=== PATIENT | female | born 1940 | race Caucasian/White ===

== ENCOUNTER → 2016-03-30 | Outpatient (CLI) | payer MEDICARE, OTHER ==
[~2016-03-30] MED LIST: AMITRIPTYLINE H25 M1 PO; ASPIRIN E.C. 8181 MG PO; ATIVAN 1MG T1 MG/TAB PO; CARAFATE 1GM1 G PO; CEFTIN 250250 MG/TAB PO; CITRACAL + D 251 TAB PO; CITRACAL + D CA1 TAB PO; ESTROGENS0.3 MG PO; FISH OIL 1000MG1 CAP PO; IMDUR 30MG30 MG/TAB; IMDUR 30MG30 MG/TAB PO; IRON325 M2 PO; KENALOG0.1% TP; LEVSIN 0.10.125 MG/T PO; LIPITOR 80MG80 MG PO; LYSINE 500500 MG/TAB PO; MACROBID 1100 MG/CAP; MAG-OX 400400 MG/TAB PO; MOTRIN 800800 MG/TAB PO; MOTRIN800 MG PO; NITROSTAT0.4 MG/TAB SL; OSTEO-BI-FLEX 21 TAB; OSTEO-BI-FLEX 21 TAB PO; PEPCID40 MG PO; PLAVIX 75MG TAB75 MG PO; PREMARIN .3MG0.3 MG PO; PREVACID 30MG30 M1 PO; PRILOSEC20 MG PO; PRINIVIL5 MG PO; PROTONIX 40MG T40 MG PO; SINGULAIR 110 MG/TAB PO; TOPROL XL 25MG25 MG PO; TYLENOL 325MG325 MG PO; ULTRAM 50MG TAB50 MG; VALIUM 2MG T2 MG/TAB PO; VITAMIN D 50,1.25 MG PO; VITAMIN D31000 IU PO; VITAMIN E 400 U4001 PO; VITAMIN E28000 IU TP; VITAMINE200 PO; ZANTAC 300300 MG PO; ZESTRIL2.5 MG PO; ZOCOR 40MG40 MG PO; ZOCOR20 MG PO; ZYRTEC10 MG PO; ZYRTEC5 MG PO; [UNRECOGNIZED DRUG - OTHER]; [UNRECOGNIZED DRUG - OTHER] PO
== END ==
LOC: MC.RAD 10:53
DX: Z12.31 Encounter for screening mammogram for malignant neoplasm of breast (principal)

== ENCOUNTER → 2016-12-08 | Outpatient (CLI) | payer MEDICARE, OTHER | LOC: COL.RAD 08:30 | DX: K22.8 Other specified diseases of esophagus (principal); K44.9 Diaphragmatic hernia without obstruction or gangrene; R19.7 Diarrhea, unspecified; Z86.010 Personal history of colon polyps; R10.9 Unspecified abdominal pain; K57.92 Diverticulitis of intestine, part unspecified, without perforation or abscess without bleeding; R10.13 Epigastric pain; K21.9 Gastro-esophageal reflux disease without esophagitis ==

== ENCOUNTER 2017-08-19 10:34 | Emergency (ER) | payer MEDICARE, OTHER ==
[~2017-08-19] VITALS: Ht 152.4 cm; Wt 49.1 kg
[2017-08-19 10:35] VITALS: TEMP 97.7
[2017-08-19 10:56] LABS: BASO % 0.3 % (0.0-2.0); EOS % 0.3 % (0-4.0); GRAN # 9.3 (1.4-6.5); GRAN % 80.1 % (42.2-75.2); HEMOGLOBIN 10.8 g/dl (12.5-16.0); LYMPH # 1.3 (1.2-3.4); LYMPH % 11.4 % (20.0-51.0); MEAN CELL VOLUME 97 fl (80.0-100.0); MEAN CORPUSCULAR HEMOGLOBIN 33 pg (27.0-31.0); MEAN CORPUSCULAR HGB CONC 34 g/dl (33.0-37.0); MEAN PLATELET VOLUME 9.2 fl (7.4-10.4); MONO # 0.8 (0.1-0.6); MONO % 7.2 % (1.7-9.3); PLATELET COUNT 223 K/mm3 (130-400); RED BLOOD COUNT 3.27 M/mm3 (4.10-5.30); REDCELL DISTRIBUTION WIDTH-CV 12.8 % (11.5-14.5)
[2017-08-19 11:02] LABS: HEMATOCRIT 31.6 % (37.0-47.0)
[2017-08-19 11:07] LABS: ALBUMIN 2.9 gm/dL (3.5-5.0); BILIRUBIN,TOTAL 0.2 mg/dL (0.0-1.0); CALCIUM 8.4 mg/dL (8.4-10.2); CREATININE, serum 0.68 mg/dL (0.52-1.25); POTASSIUM 3.8 mmol/L (3.4-5.0); TOTAL PROTEIN 5.4 gm/dL (6.4-8.2)
[2017-08-19 11:11] LABS: PARTIAL THROMBOPLASTIN TIME 32.3 SECONDS (26.0-37.0)
[2017-08-19 11:21] LABS: TROPONIN-I 0.065 ng/mL (0.000-0.034)
[2017-08-19 11:38] LABS: TSH w REFLEX 1.11 uIU/mL (0.465-4.680)
[2017-08-19] MEDS ORDERED: ASPIRIN 81M81 MG/TA2 PO (13:21)
[2017-08-19] MEDS ORDERED: MYRBETR25MG PO (13:27)
[2017-08-19] MEDS ORDERED: NEXIUM 40MG40 MG PO (13:31)
[2017-08-19] MEDS ORDERED: QUESTRAN4 GM/9 GM PO (13:39)
[2017-08-19] MEDS ORDERED: NORCO 325 MG-51 TAB PO (13:40)
[2017-08-19] MEDS ORDERED: MAG64 110 MG-181 ECT (13:40)
[2017-08-19 14:13] VITALS: BP 114/49; PULSE 67
== END 2017-08-19 12:50 | disposition short-term general hospital (02) ==
LOC: COL.ER 10:34
PROVIDERS: Emergency Medicine
DX: I48.91 Unspecified atrial fibrillation (principal); I25.10 Atherosclerotic heart disease of native coronary artery without angina pectoris; Z79.82 Long term (current) use of aspirin; Z79.02 Long term (current) use of antithrombotics/antiplatelets; Z95.5 Presence of coronary angioplasty implant and graft
CPT/HCPCS: J0282; J1650; J7030; J7050; J7060

== ENCOUNTER 2017-08-31 09:52 | Inpatient (IN) | payer MEDICARE, OTHER ==
[~2017-08-31] VITALS: Ht 152.4 cm; Wt 48.2 kg
[~2017-08-31 09:52] MED LIST changes: +ASPIRIN 81M81 MG/TA2 PO; +MAG64 110 MG-181 ECT PO; +MYRBETR25MG PO; +NEXIUM 40MG40 MG PO; +NORCO 325 MG-51 TAB PO; +QUESTRAN4 GM/9 GM PO
[2017-08-31 10:30] LABS: BASO % 0.7 % (0.0-2.0); EOS % 0.5 % (0-4.0); GRAN # 3.1 (1.4-6.5); GRAN % 55.8 % (42.2-75.2); HEMOGLOBIN 11.6 g/dl (12.5-16.0); LYMPH # 1.8 (1.2-3.4); LYMPH % 33.4 % (20.0-51.0); MEAN CELL VOLUME 93 fl (80.0-100.0); MEAN CORPUSCULAR HEMOGLOBIN 33 pg (27.0-31.0); MEAN CORPUSCULAR HGB CONC 36 g/dl (33.0-37.0); MEAN PLATELET VOLUME 8.7 fl (7.4-10.4); MONO # 0.5 (0.1-0.6); MONO % 9.1 % (1.7-9.3); PLATELET COUNT 343 K/mm3 (130-400); RED BLOOD COUNT 3.51 M/mm3 (4.10-5.30); REDCELL DISTRIBUTION WIDTH-CV 12.5 % (11.5-14.5)
[2017-08-31 10:33] LABS: HEMATOCRIT 32.5 % (37.0-47.0)
[2017-08-31 10:41] LABS: ALBUMIN 3.8 gm/dL (3.5-5.0); BILIRUBIN,TOTAL 1.1 mg/dL (0.0-1.0); CALCIUM 9.4 mg/dL (8.4-10.2); CREATININE, serum 0.64 mg/dL (0.52-1.25); TOTAL PROTEIN 6.5 gm/dL (6.4-8.2)
[2017-08-31 11:09] LABS: COLLECTION METHOD CLEAN CATCH
[2017-08-31 11:31] LABS: MUCOUS Present /lpf; PH 7 (5-8); URINE APPEARANCE Cloudy; URINE BACTERIA Occasional /hpf; URINE BILIRUBIN Negative (NEGATIVE); URINE BLOOD Negative (NEGATIVE); URINE COLOR Yellow; URINE GLUCOSE Negative (NEGATIVE); URINE KETONE Trace (NEGATIVE); URINE LEUKOCYTE ESTERASE 3+ (NEGATIVE); URINE NITRATE Positive (NEGATIVE); URINE PROTEIN(semi-quant) Negative (NEGATIVE); URINE UROBILINOGEN Negative (NEGATIVE)
[2017-08-31] MEDS ORDERED: PACERONE200 MG PO (11:49)
[2017-08-31] MEDS ORDERED: ELIQUIS 5MG PO (11:50)
[2017-08-31] MEDS ORDERED: NEXIUM 20MG20 MG PO (11:52)
[2017-08-31] MEDS ORDERED: ANTI-DIARRHEAL2 MG PO (11:54)
[2017-08-31] MEDS ORDERED: SLOW-MAG 6464 MG/TAB PO (11:56)
[2017-08-31] MEDS ORDERED: SINGULAIR 110 MG/TAB PO (11:57)
[2017-08-31] MEDS ORDERED: OSTEO-BI-FLEX 21 TAB PO (11:57)
[2017-08-31] MEDS ORDERED: CARAFATE 1GM1 G PO (11:58)
[2017-08-31] MEDS ORDERED: K-TAB10 (11:58)
[2017-08-31] MEDS ORDERED: MASON NATURAL2000 IU PO (11:59)
[2017-08-31] MEDS ORDERED: OMNICEF 300MG300 MG PO (12:43)
[2017-08-31 16:23] LABS: MAGNESIUM 1.4 mg/dL (1.6-2.3)
[2017-08-31 16:36] LABS: TROPONIN-I < 0.012 ng/mL (0.000-0.034)
[2017-08-31 17:05] VITALS: BP 158/40; PULSE 60; TEMP 98
[2017-08-31 17:27] VITALS: BP 101/74; PULSE 59; TEMP 98.2
[2017-08-31 17:29] VITALS: BP 151/53; PULSE 66; TEMP 98.2
[2017-08-31 17:34] VITALS: BP 120/46; PULSE 69; TEMP 98.2
[2017-08-31 18:22] LABS: CALCIUM 8.6 mg/dL (8.4-10.2); CREATININE, serum 0.57 mg/dL (0.52-1.25); POTASSIUM 3.1 mmol/L (3.4-5.0)
[2017-08-31 19:54] VITALS: BP 136/50; PULSE 55; TEMP 98.2
[2017-08-31 23:57] VITALS: BP 147/58; PULSE 54; TEMP 97.7
[2017-09-01 04:24] VITALS: BP 129/50; PULSE 50; TEMP 98.4
[2017-09-01 07:07] LABS: CALCIUM 8.4 mg/dL (8.4-10.2); CREATININE, serum 0.62 mg/dL (0.52-1.25); POTASSIUM 4.1 mmol/L (3.4-5.0)
[2017-09-01 08:27] VITALS: BP 138/48; PULSE 57; TEMP 97.4
[2017-09-01 12:34] VITALS: BP 125/54; PULSE 54; TEMP 98.9
[2017-09-01 15:55] VITALS: BP 142/53; PULSE 54; TEMP 98.2
[2017-09-01 20:36] VITALS: BP 140/48; PULSE 56; TEMP 97.6
[2017-09-01 23:39] VITALS: BP 116/88; PULSE 52; TEMP 98.2
[2017-09-02 03:52] VITALS: BP 168/55; PULSE 74; TEMP 98.6
[2017-09-02 07:06] VITALS: BP 146/51; PULSE 51; TEMP 97.9
[2017-09-02 08:00] LABS: CALCIUM 8.2 mg/dL (8.4-10.2); CREATININE, serum 0.6 mg/dL (0.52-1.25); POTASSIUM 3.7 mmol/L (3.4-5.0)
[2017-09-02 11:08] VITALS: BP 136/67; PULSE 53; TEMP 97.7
[2017-09-02] MEDS ORDERED: BETAPACE 80MG80 MG PO (11:36)
[2017-09-02] MEDS ORDERED: OMNICEF 300MG300 MG PO (11:37)
== END 2017-09-02 17:00 | disposition home or self-care (01) | DRG 690 ==
LOC: COL.ER 09:52 → MEDICAL 14:41
PROVIDERS: Emergency Medicine; Nurse Practitioner; Physician Assistant
DX: N39.0 Urinary tract infection, site not specified (principal); E87.1 Hypo-osmolality and hyponatremia; R42 Dizziness and giddiness; T46.2X5A Adverse effect of other antidysrhythmic drugs, initial encounter; I48.0 Paroxysmal atrial fibrillation; B96.20 Unspecified Escherichia coli [E. coli] as the cause of diseases classified elsewhere; I10 Essential (primary) hypertension; I25.10 Atherosclerotic heart disease of native coronary artery without angina pectoris; I08.0 Rheumatic disorders of both mitral and aortic valves; E87.6 Hypokalemia; Z87.891 Personal history of nicotine dependence; Z95.5 Presence of coronary angioplasty implant and graft
CPT/HCPCS: G0378; J0696; J3475; J7030

== ENCOUNTER → 2017-12-01 | Outpatient (CLI) | payer MEDICARE, OTHER ==
[~2017-12-01] MED LIST changes: +ANTI-DIARRHEAL2 MG PO; +BETAPACE 80MG80 MG PO; +CLEOCIN HCL300 MG PO; +ELIQUIS 5MG PO; +K-TAB10; +MAG-TAB SR84 MG PO; +MASON NATURAL2000 IU PO; +NEXIUM 20MG20 MG PO; +OMNICEF 300MG300 MG PO; +PACERONE200 MG PO; +SLOW-MAG 6464 MG/TAB PO
== END ==
LOC: MC.RAD 10:26
DX: Z12.31 Encounter for screening mammogram for malignant neoplasm of breast (principal)

== ENCOUNTER 2017-12-06 09:58 | Day surgery (SDC) | payer MEDICARE, OTHER ==
[~2017-12-06] VITALS: Ht 152.5 cm; Wt 50.4 kg
[~2017-12-06 09:58] MED LIST changes: -CLEOCIN HCL300 MG PO
[2017-12-06 10:56] VITALS: BP 158/46; PULSE 59; TEMP 97.7
[2017-12-06] MEDS ORDERED: CLEOCIN HCL300 MG PO (11:18)
[2017-12-06 12:07] VITALS: BP 148/86; PULSE 56; TEMP 97.6
== END 2017-12-06 12:15 | disposition home or self-care (01) ==
LOC: COL.CAR 09:58
DX: I48.0 Paroxysmal atrial fibrillation (principal); I25.10 Atherosclerotic heart disease of native coronary artery without angina pectoris; I44.7 Left bundle-branch block, unspecified; I08.0 Rheumatic disorders of both mitral and aortic valves; E78.5 Hyperlipidemia, unspecified; R51 Headache; K21.9 Gastro-esophageal reflux disease without esophagitis; M19.90 Unspecified osteoarthritis, unspecified site; M85.80 Other specified disorders of bone density and structure, unspecified site; Z90.49 Acquired absence of other specified parts of digestive tract; Z90.710 Acquired absence of both cervix and uterus; Z90.79 Acquired absence of other genital organ(s); Z90.722 Acquired absence of ovaries, bilateral; Z79.01 Long term (current) use of anticoagulants; Z79.82 Long term (current) use of aspirin; Z88.0 Allergy status to penicillin; Z88.5 Allergy status to narcotic agent; Z88.8 Allergy status to other drugs, medicaments and biological substances; Z95.5 Presence of coronary angioplasty implant and graft; Z87.891 Personal history of nicotine dependence; Z82.49 Family history of ischemic heart disease and other diseases of the circulatory system
CPT/HCPCS: 27124; C1764

== ENCOUNTER 2018-02-21 01:46 | Inpatient (IN) | payer MEDICARE, OTHER ==
[2018-02-21] VITALS (14 sets, daily range): BP systolic 114–1142; BP diastolic 44–88; PULSE 64–96; TEMP 97.5–98.6
[~2018-02-21] VITALS: Ht 152.4 cm; Wt 46.8 kg
[~2018-02-21 01:46] MED LIST changes: +CLEOCIN HCL300 MG PO
[2018-02-21 02:03] LABS: BASO % 0.2 % (0.0-2.0); EOS % 0.1 % (0-4.0); GRAN # 13.5 (1.4-6.5); HEMOGLOBIN 12.3 g/dl (12.5-16.0); LYMPH # 1.9 (1.2-3.4); LYMPH % 11.7 % (20.0-51.0); MEAN CELL VOLUME 91 fl (80.0-100.0); MEAN CORPUSCULAR HEMOGLOBIN 32 pg (27.0-31.0); MEAN CORPUSCULAR HGB CONC 35 g/dl (33.0-37.0); MEAN PLATELET VOLUME 9.4 fl (7.4-10.4); MONO # 0.7 (0.1-0.6); MONO % 4.4 % (1.7-9.3); PLATELET COUNT 313 K/mm3 (130-400); RED BLOOD COUNT 3.84 M/mm3 (4.10-5.30)
[2018-02-21 02:05] LABS: HEMATOCRIT 34.9 % (37.0-47.0)
[2018-02-21 02:11] LABS: INR 1.2 (0.8-3.0); PROTHROMBIN TIME 13.9 SECONDS (9.7-12.8)
[2018-02-21 02:14] LABS: PARTIAL THROMBOPLASTIN TIME 32.4 SECONDS (26.0-37.0)
[2018-02-21 02:34] LABS: ALANINE AMINOTRANSFERASE 15 U/L (9-52); ALBUMIN 4.1 gm/dL (3.5-5.0); ALKALINE PHOSPHATASE 76 U/L (50-136); ANION GAP 10 mmol/L (7-16); AST,SGOT 22 U/L (15-37); BILIRUBIN,TOTAL 0.6 mg/dL (0.0-1.0); BLOOD UREA NITROGEN 27 mg/dL (7-17); C-REACTIVE PROTEIN < 0.5 mg/dL (0.0-0.9); CALCIUM 9.5 mg/dL (8.4-10.2); CARBON DIOXIDE 21 mmol/L (22-30); CHLORIDE 98 mmol/L (98-107); CREATININE, serum 0.55 mg/dL (0.52-1.25); GLUCOSE 183 mg/dL (74-106); LIPASE 71 U/L (23-300); POTASSIUM 3.9 mmol/L (3.4-5.0); SODIUM 129 mmol/L (137-145); TOTAL PROTEIN 7.1 gm/dL (6.4-8.2)
[2018-02-21 02:40] LABS: COLLECTION METHOD CLEAN CATCH
[2018-02-21 02:50] LABS: TROPONIN-I < 0.012 ng/mL (0.000-0.034)
[2018-02-21 03:26] LABS: BUDDING YEAST Present /hpf; MUCOUS Present /lpf; PH 6 (5-8); SQUAMOUS EPITHELIAL None Seen /hpf; URINE APPEARANCE Hazy; URINE BACTERIA Rare /hpf; URINE BILIRUBIN Negative (NEGATIVE); URINE BLOOD Negative (NEGATIVE); URINE COLOR Yellow; URINE GLUCOSE 1+ (NEGATIVE); URINE KETONE 1+ (NEGATIVE); URINE LEUKOCYTE ESTERASE 1+ (NEGATIVE); URINE NITRATE Positive (NEGATIVE); URINE PROTEIN(semi-quant) Negative (NEGATIVE); URINE UROBILINOGEN Negative (NEGATIVE)
[2018-02-21] MEDS ORDERED: MAG-OX 400400 MG/TAB PO (03:42)
[2018-02-21] MEDS ORDERED: OSTEO-BI-FLEX 21 TAB PO (03:42)
[2018-02-21] MEDS ORDERED: BETAPACE 80MG80 MG PO (03:44)
[2018-02-21] MEDS ORDERED: FERROUSAL325 MG PO (03:46)
--- NOTE | 2018-02-21 08:30 | NUR ---
Patient alert and oriented, answers questions appropriately. Abdomen firm, distended. Bowel sounds tinkling. No flatus. C/o nausea. Abdomen pain 8/10 with movement. No other c/o at this time.
[2018-02-21 08:47] LABS: BASO % 0.2 % (0.0-2.0); GRAN # 15.7 (1.4-6.5); HEMOGLOBIN 12.1 g/dl (12.5-16.0); LYMPH # 1.1 (1.2-3.4); LYMPH % 6.1 % (20.0-51.0); MEAN CELL VOLUME 92 fl (80.0-100.0); MEAN CORPUSCULAR HEMOGLOBIN 32 pg (27.0-31.0); MEAN CORPUSCULAR HGB CONC 35 g/dl (33.0-37.0); MEAN PLATELET VOLUME 9.7 fl (7.4-10.4); MONO # 1.1 (0.1-0.6); PLATELET COUNT 293 K/mm3 (130-400); RED BLOOD COUNT 3.75 M/mm3 (4.10-5.30)
[2018-02-21 08:51] LABS: HEMATOCRIT 34.3 % (37.0-47.0)
[2018-02-21 08:58] LABS: CALCIUM 8.9 mg/dL (8.4-10.2); CREATININE, serum 0.5 mg/dL (0.52-1.25); POTASSIUM 3.3 mmol/L (3.4-5.0)
--- NOTE | 2018-02-21 16:58 | NUR ---
Patient returns from surgery. Assessment unchanged except for midline incision and lap site with dressing CDI. Bowel sounds absent. No flatus. C/o 5/10 pain to abdomen. No other c/o at this time.
[2018-02-22] VITALS (8 sets, daily range): BP systolic 111–150; BP diastolic 43–64; PULSE 74–104; TEMP 97.4–98.1
--- NOTE | 2018-02-22 02:12 | NUR ---
THE PT WAS JUST SETTLED IN HER ROOM SHORTLY BEFORE SHIFT REPORT WITH ANICETO AND HER ORIENTEE. THE PT BEDRESTS, C\\O A HEADACHE WHICH IS NORMAL FOR HER. IV PATENT TO RIGHT ARM, BHAGAT PATENT. ABD DRESSING WAS CD&I, DR. WALSH WAS IN BEDSIDE REPORT WAS DONE. BANDAID JUST TO THE RIGHT OF THE ABD IS ALSO CD&I. THE PT WAS VERY TALKATIVE.TELE CONTINUES AT WITH BBB. THE PT C\\O RASPINESS AND SORE THROAT. FEW SPARING ICE CHIPS FOR COMFORT. HYPO ACTIVE BOWEL SOUNDS. THE PT VERBALIZED OF MULTIPLE SURGERIES, OR DIVERTICULOSIS AND OF HAVING ISSUES WITH WEIGHT LOSS AND FOOD INTOLERANCES. THE PT WAS REPOSITIONED UP IN THE BED, ABLE TO BELCH SOME, VERBALIZED THAT THIS HELPED WITH HER "GAS".SHE APPEARS TO SLEEP IN NAPS. SHE IS CLOSTROPHOBIC AND WANTED HER FIELD OF VISION TO BE CLEAR AND FOR THE DOOR TO THE ROOM TO REMAIN WIDE OPEN.
--- NOTE | 2018-02-22 03:22 | NUR ---
THE PT IS BEDRESTING WITH EYES CLOSED, RESP EVEN
[2018-02-22 08:51] LABS: HEMOGLOBIN 10.7 g/dl (12.5-16.0); MEAN CELL VOLUME 96 fl (80.0-100.0); MEAN CORPUSCULAR HEMOGLOBIN 32 pg (27.0-31.0); MEAN CORPUSCULAR HGB CONC 33 g/dl (33.0-37.0); MEAN PLATELET VOLUME 9.9 fl (7.4-10.4); PLATELET COUNT 259 K/mm3 (130-400); RED BLOOD COUNT 3.34 M/mm3 (4.10-5.30); REDCELL DISTRIBUTION WIDTH-CV 13.7 % (11.5-14.5)
[2018-02-22 09:05] LABS: CALCIUM 8.4 mg/dL (8.4-10.2); CREATININE, serum 0.69 mg/dL (0.52-1.25); POTASSIUM 4.6 mmol/L (3.4-5.0)
--- NOTE | 2018-02-22 09:31 | NUR ---
Patient resting in bed at this time, call light in reach, bed alarm on, scd's on and getting a bed bath from HOUSEKEEPING AID at this time. Removed urinary catheter with 5ml of saline being removed from catheter balloon. Patient tolerated with minimal discomfort reported. Will continue to monitor.
--- NOTE | 2018-02-22 11:31 | NUR ---
Initial visit; Patient thanked [facility] for looking in on her , visiting and keeping her in [facility]'s prayers.
[2018-02-22 12:16] LABS: BAND 57 % (0-10); LYMPHOCYTE 7 % (20.0-51.0); NEUTROPHILS 36 % (42.0-75.2)
[2018-02-22 12:20] LABS: BURR CELLS 3+
[2018-02-22 12:21] LABS: PLATELET ESTIMATE NORMAL (NORMAL)
--- NOTE | 2018-02-22 13:37 | NUR ---
SW attended clinical rounding and met with patient to discuss discharge planning. Patient lives alone in [place] and is independent in ADLs. She does have a cane she can use for ambulation if needed. Patients PCP is Dr Gong and she obtains her meds from [facility]. PT and OT have been ordered for patient, sw will follow to see what the recommendations are. No other identified needs at this time.
--- NOTE | 2018-02-22 19:42 | NUR ---
Patient was seen by Dr. Flores this morning see new orders for clear liquid diet. Patient was seen by Dr. Bradford this afternoon and he ordered orthostatic BP's to be completed one time today due to patient reporting dizziness at times. Lying: BP 134/44, P 84; Sitting: BP 150/56, P 96; Standing: BP 148/64, P 104. He restarted some home meds following patient discussion. Patient had some bilateral hand swelling and this was called to OLEGARIO Charles. See new orders for DC of IV fluids. This nurse was unable to get patients left forearm IV catheter to flush so it was pulled this evening. Patient tolerated with no discomfort reported. Upon transferring patient to the bed side commode patient had bleeding from abdominal wound. Patient was positioned back in bed and dressing had came open from the bottom side. The dressing was resecured with 4x4's and hepifix tape. Patient's gown was changed and she is currently resting in bed, call light in reach, scd's on and just received her pain med from night nurse. This nurse reported off to night nurse.
--- NOTE | 2018-02-22 22:00 | NUR ---
NO FURTHER BLEEDING FROM DISTAL END OF ABD DRSG.
[2018-02-23] VITALS (7 sets, daily range): BP systolic 133–159; BP diastolic 53–67; PULSE 82–91; TEMP 97.8–98.9
--- NOTE | 2018-02-23 04:50 | NUR ---
PT HAS BLOODY DRG SHADOWIN THRU ABD DRSG. PT UP TO BSC X 3 TONIGHT. VOIDING WELL. PAIN CONTROLLED BY NORCO. DENIES NAUSEA. SCD'S STILL ON. DENIES NEEDS AT THIS TIME.
[2018-02-23 08:05] LABS: MEAN CELL VOLUME 96 fl (80.0-100.0); MEAN CORPUSCULAR HGB CONC 33 g/dl (33.0-37.0); MEAN PLATELET VOLUME 10.6 fl (7.4-10.4); PLATELET COUNT 230 K/mm3 (130-400); RED BLOOD COUNT 2.97 M/mm3 (4.10-5.30); REDCELL DISTRIBUTION WIDTH-CV 14.3 % (11.5-14.5)
[2018-02-23 08:06] LABS: HEMATOCRIT 28.6 % (37.0-47.0); HEMOGLOBIN 9.5 g/dl (12.5-16.0); MEAN CORPUSCULAR HEMOGLOBIN 32 pg (27.0-31.0)
--- NOTE | 2018-02-23 08:06 | NUR ---
Report from JIGNA Fisher. Pt asleep in bed, head elevated at 30*.
[2018-02-23 08:13] LABS: CALCIUM 8.6 mg/dL (8.4-10.2); CREATININE, serum 0.61 mg/dL (0.52-1.25); POTASSIUM 4.2 mmol/L (3.4-5.0)
[2018-02-23 08:48] LABS: BAND 5 % (0-10); LYMPHOCYTE 4 % (20.0-51.0); NEUTROPHILS 86 % (42.0-75.2); PLATELET ESTIMATE NORMAL (NORMAL)
[2018-02-23 08:49] LABS: BURR CELLS 2+
--- NOTE | 2018-02-23 09:05 | NUR ---
Dr. Flores rounded, he removed dressing with sanguinous drainage on 4x4s, applied folded ABD and secured with hypafix tape on three edges. [place] intact, edges well approximated, no active drainage.
--- NOTE | 2018-02-23 10:17 | NUR ---
SW met with patient during clinical rounding. Patient is not discharging today. SW will continue to follow.
--- NOTE | 2018-02-23 13:40 | NUR ---
Pt amb to BR with SBA and walker, continent, changed gown and bottom linens.
--- NOTE | 2018-02-23 14:16 | NUR ---
Per pt's request, cancelled OP MRI Brain that was scheduled for tomorrow.
--- NOTE | 2018-02-23 15:33 | NUR ---
Pt amb to BR w/ mod assist with offering hand to pull self to side of bed, assisted both legs into bed both times before. Pt had SCDs to BLE, gripper socks in place.
--- NOTE | 2018-02-23 20:00 | NUR ---
PT FRAIL AND NEEDY. HAVING ABD PAIN AND H/A. VSS. SEE MAR FOR PAIN MED GIVEN. NNEDING MOD ASSIST TO STANDING. AMB TO BR WITH WALKER WITH VERY SLOW HUNCHHED OVER GAIT. PT RELATES HER DAUGHTERS ARE COMING AND THEY WILL TAKE CARE OF HER AT HOME AFTER DISCHARGE. CALL LIGHT IN REACH. BED ALARM SET.
[2018-02-24 03:45] VITALS: BP 153/58; PULSE 81; TEMP 97.9
[2018-02-24 06:16] LABS: MEAN CELL VOLUME 94 fl (80.0-100.0); MEAN CORPUSCULAR HGB CONC 34 g/dl (33.0-37.0); MEAN PLATELET VOLUME 10.9 fl (7.4-10.4); PLATELET COUNT 241 K/mm3 (130-400); RED BLOOD COUNT 3.05 M/mm3 (4.10-5.30); REDCELL DISTRIBUTION WIDTH-CV 14.1 % (11.5-14.5)
[2018-02-24 06:24] LABS: CALCIUM 8.8 mg/dL (8.4-10.2); CREATININE, serum 0.58 mg/dL (0.52-1.25); POTASSIUM 3.3 mmol/L (3.4-5.0)
[2018-02-24 06:44] LABS: HEMATOCRIT 28.8 % (37.0-47.0); HEMOGLOBIN 9.7 g/dl (12.5-16.0); MEAN CORPUSCULAR HEMOGLOBIN 32 pg (27.0-31.0)
[2018-02-24 07:18] VITALS: BP 131/58; PULSE 74; TEMP 98
[2018-02-24 07:23] LABS: BAND 17 % (0-10); BASOPHIL 1 % (0-2); EOSINOPHIL 1 % (0-4); LYMPHOCYTE 5 % (20.0-51.0); NEUTROPHILS 74 % (42.0-75.2)
[2018-02-24 07:24] LABS: PLATELET ESTIMATE NORMAL (NORMAL)
--- NOTE | 2018-02-24 08:08 | NUR ---
Pt called to report nausea, also states her "stomach hurts, like tightening up." Provided cool washcloth to forehead and IV zofran
[2018-02-24 11:02] VITALS: BP 144/58; PULSE 75; TEMP 98.4
--- NOTE | 2018-02-24 11:48 | NUR ---
Pt had reported some relief from nausea after IV zofran administered, now pt states she has nausea. Edu about reducing narcs and starting IVF. Chapstick for chapped and scabbed lips. Daughter flew in from [place] and is in the room.
--- NOTE | 2018-02-24 12:55 | NUR ---
Pt unable to tolerate potassium IV in RFA INT, started new INT to LFA and infusing NS and IV Mg concurrently.
--- NOTE | 2018-02-24 14:16 | NUR ---
GENEVIEVE met with patient and daughter to discuss HH options. Daughter flew in for the next two weeks to be with her mother but they are open to home health. Patient was provided with Medicare approved list of hh agencies. She would like to use [facility] . GENEVIEVE made referral.
[2018-02-24 15:02] VITALS: BP 135/60; PULSE 81; TEMP 98
--- NOTE | 2018-02-24 15:26 | NUR ---
Moved to new room per pt requesting quieter room
--- NOTE | 2018-02-24 17:45 | NUR ---
Daughter left, pt called because IV beeping: mag completed. Started potassium IV- pt concerned about it burning like it did earlier today when it was stopped at beginning of infusion at former IV site, edu pt about running K+ with NS concurrently to decrease burning sensation, but she may still experience some discomfort anyway. Discussed that the alternatives were a central line or oral potassium- however, Dr. Flores wanted her to decrease her intake d/t not passing gas nor stools and because of her nausea, and pt not keen on idea of PICC placement. Call light in reach.
[2018-02-24 19:11] VITALS: BP 137/96; PULSE 74; TEMP 97.9
--- NOTE | 2018-02-24 19:22 | NUR ---
Notified Dr. Jasso that pt could not tolerate IV K+ d/t burning even when concurrent with NS at 50 mL/hr. Orders changed to PO. Provided K+ in 4 oz water. Pt reports nausea, basin in reach. Bedside report to JIGNA Brothers. Call light in reach, SCDs in place. Abd dressing without shadowing.
--- NOTE | 2018-02-24 20:00 | NUR ---
Patient in bed resting; alert and oriented x 3. Shift assessment complete. IV to left forarm with fluids infusing via pump. Patient up to bedside comode, x1 assist with steady gait. States mild pain to abdomen, will call when she feels like she needs to take something for pain. Gauze dressing to midline incision CDI. Denies further needs at this time.
[2018-02-25 04:51] VITALS: BP 153/53; PULSE 74; TEMP 98.5
--- NOTE | 2018-02-25 06:40 | NUR ---
Patient has rested well through the night. Has been up to bedside comode with walker and stand by assist. Up to sink this AM to brush her teeth. IV fluids infusing to right wrist via pump. Denies pain at this time. Denies further needs at this time. Will report off to day shift.
[2018-02-25 07:05] LABS: BASO % 0.3 % (0.0-2.0); EOS # 0.1 (0.0-0.7); EOS % 0.4 % (0-4.0); GRAN % 88.8 % (42.2-75.2); HEMOGLOBIN 10.1 g/dl (12.5-16.0); LYMPH # 0.6 (1.2-3.4); MEAN CELL VOLUME 93 fl (80.0-100.0); MEAN CORPUSCULAR HEMOGLOBIN 32 pg (27.0-31.0); MEAN CORPUSCULAR HGB CONC 34 g/dl (33.0-37.0); MEAN PLATELET VOLUME 10.2 fl (7.4-10.4); MONO # 0.5 (0.1-0.6); MONO % 4.8 % (1.7-9.3); PLATELET COUNT 263 K/mm3 (130-400); RED BLOOD COUNT 3.17 M/mm3 (4.10-5.30); REDCELL DISTRIBUTION WIDTH-CV 13.9 % (11.5-14.5)
[2018-02-25 07:16] LABS: CALCIUM 8.4 mg/dL (8.4-10.2); CREATININE, serum 0.58 mg/dL (0.52-1.25); MAGNESIUM 1.8 mg/dL (1.6-2.3); POTASSIUM 3.1 mmol/L (3.4-5.0)
[2018-02-25 07:20] LABS: HEMATOCRIT 29.5 % (37.0-47.0)
--- NOTE | 2018-02-25 07:46 | NUR ---
Patient alert and oriented answers questions appropriately. See assessment. Abdomen soft, non distended. Bowel sounds audible x4 quads. No flatus. Midline incision with edges well approximated, no redness or drainage noted. Lap site x1 with edges well approximated, no redness or drainage noted. Reviewed post op exercises and ambulation with patient, verbalizes understanding. No pain with abdominal palpation. No other c/o at this time.
[2018-02-25 09:00] VITALS: BP 142/55; PULSE 71; TEMP 97.9
--- NOTE | 2018-02-25 11:59 | NUR ---
Update: GENEVIEVE obtained order for FWW. Patient chose [facility]. GENEVIEVE faxed FWW request. Patient will have DME delivered to home on 02/27/18 nothing follows.
[2018-02-25 13:52] VITALS: BP 149/58; PULSE 71; TEMP 98.5
[2018-02-25 17:10] VITALS: BP 163/56; PULSE 68; TEMP 97.9
--- NOTE | 2018-02-25 20:05 | NUR ---
Patient complains of abdominal discomfort and cramping while up in chair. Assisted with ambulation in hallway at this time. Does not pass gas, does alot of belching. IV fluids infusing to left forearm site without redness or swelling. Has active bowel sounds. Incision to lower midline with dry dressing and petra intact. Voiding without problem.
[2018-02-25 21:00] VITALS: BP 146/65; PULSE 75; TEMP 97.8
[2018-02-26 00:30] VITALS: BP 140/60; PULSE 56; TEMP 98.2
[2018-02-26 03:21] VITALS: BP 147/76; PULSE 70; TEMP 97.9
--- NOTE | 2018-02-26 05:25 | NUR ---
Patient complains of gas and abdominal cramping. Assisted with ambulation in hallway, reports small amount of flatus at this time. Medicated with [place] for headache. IVF infusing without problem. Has had good oral fluid intake this shift.
[2018-02-26 07:47] VITALS: BP 159/67; PULSE 77; TEMP 98.2
[2018-02-26 12:24] VITALS: BP 142/59; PULSE 69; TEMP 98.3
--- NOTE | 2018-02-26 16:00 | NUR ---
Patient given prn Hydrocodone and following this had an episode of emesis approx. 75 ml output. Patient given prn zofran via IV and it was effective. Patient currently resting in bed, daughter by her side, slip proof socks on and call light in reach. Patient was changed from clear liquids to full liquids today so did order a super, but following emesis refused the meal. Reported off to night nurse.
[2018-02-26 16:59] VITALS: BP 148/55; PULSE 71; TEMP 98.1
--- NOTE | 2018-02-26 17:40 | NUR ---
During potassium infusion patient started having arm pain. This nurse stopped the potassium infusion. Call placed to Dr. Jasso with okay to stop last two doses of potassium with his verbal approval. Will recheck potassium level tomorrow morning. Patient reporting some dizziness now and stating that she, "feels like crap." Patient currently resting in bed at this time, call light in reach, slip proof socks on. Complaining of pain 7/10 at this time. Given prn pain meds. Will continue to monitor.
[2018-02-26 20:20] VITALS: BP 147/63; PULSE 78; TEMP 97.5
--- NOTE | 2018-02-26 21:00 | NUR ---
Patient in bed, reports having nausea and abdominal cramping. Supervised ambulation in hallway. Patient passing flatus and belching. Takes HS meds once back to her room. Voiding frequently 100-200cc at a time, which is normal for her at home. Dressing to midline incision D/I, petra intact. Abdomen with active bowel sounds x4 quadrants. No emesis at this time.
--- NOTE | 2018-02-26 23:22 | NUR ---
Patient complains of a headache, asking for [place]. Educated on pain meds and provided Tramadol instead at this time. Patient has not had any emesis this shift, taking oral fluids without problem.
[2018-02-27 00:20] VITALS: BP 167/66; PULSE 71; TEMP 98
--- NOTE | 2018-02-27 03:50 | NUR ---
Patient having headache and abdominal cramping. Medicated with [place] 5/325mg at this time.
[2018-02-27 04:45] VITALS: BP 164/67; PULSE 71; TEMP 97.8
--- NOTE | 2018-02-27 06:00 | NUR ---
Patient ambulated with supervision in hallway, gait steady. Voids and back to bed. Reports the [place] made her feel lightheaded. IVF infusing to left forearm without redness or swelling.
[2018-02-27 07:11] LABS: CREATININE, serum 0.42 mg/dL (0.52-1.25); MAGNESIUM 1.3 mg/dL (1.6-2.3)
[2018-02-27 07:14] LABS: MEAN CELL VOLUME 91 fl (80.0-100.0); MEAN CORPUSCULAR HEMOGLOBIN 32 pg (27.0-31.0); MEAN CORPUSCULAR HGB CONC 35 g/dl (33.0-37.0); MEAN PLATELET VOLUME 10.1 fl (7.4-10.4); PLATELET COUNT 287 K/mm3 (130-400); RED BLOOD COUNT 3.15 M/mm3 (4.10-5.30); REDCELL DISTRIBUTION WIDTH-CV 13.9 % (11.5-14.5)
[2018-02-27 07:17] LABS: HEMATOCRIT 28.5 % (37.0-47.0)
[2018-02-27 08:11] LABS: BAND 5 % (0-10); EOSINOPHIL 4 % (0-4); LYMPHOCYTE 15 % (20.0-51.0); METAMYELOCYTE 1 % (0-0); NEUTROPHILS 67 % (42.0-75.2); PLATELET ESTIMATE NORMAL (NORMAL)
--- NOTE | 2018-02-27 08:49 | NUR ---
Pt alert and orientedn, sitting up on side of bed eating breakfast. Daughter at bedside requesting a Notary to pay for pt bills. guest services officer called and arranged
[2018-02-27 08:57] VITALS: BP 147/59; PULSE 75; TEMP 97.5
--- NOTE | 2018-02-27 10:45 | NUR ---
[facility] is able to accept patient for services at discharge.
[2018-02-27 12:03] VITALS: BP 149/56; PULSE 69; TEMP 97.9
[2018-02-27 16:23] VITALS: BP 156/73; PULSE 71; TEMP 97.9
--- NOTE | 2018-02-27 17:57 | NUR ---
Dressing removed after pt showered. Allowed to air dry for 30min. Midline incision clean dry and intact. No redness or drainage. ABD and paper tape appiled, date/time/initials applied to dressing.
[2018-02-27 19:28] VITALS: BP 142/58; PULSE 71; TEMP 98.2
--- NOTE | 2018-02-27 23:35 | NUR ---
Patient complaining of a headache, had Tramadol at 1830 and [place] 2.5mg (per her request) at 2130. Ice pack provided at this time. Patient very focused on non surgical concerns, consistently complains about her shoulders and needing rotator cuff surgery. Patient refuses to reach for items directly at her bedside and wants staff to hand her these things. Patient reports she lives independently at home and does things "very carefully". Have encouraged more independence with ADL's.
[2018-02-28] VITALS (7 sets, daily range): BP systolic 147–159; BP diastolic 53–69; PULSE 60–77; TEMP 97.5–98
--- NOTE | 2018-02-28 04:09 | NUR ---
Patient continues to want pain med for posterior head pain. Tramadol given. Denies any surgical pain, taking oral fluids well.
--- NOTE | 2018-02-28 05:42 | NUR ---
No further complaints of headache. Will monitor for changes.
[2018-02-28 06:28] LABS: HEMATOCRIT 31.1 % (37.0-47.0); HEMOGLOBIN 10.7 g/dl (12.5-16.0); MEAN CELL VOLUME 92 fl (80.0-100.0); MEAN CORPUSCULAR HEMOGLOBIN 32 pg (27.0-31.0); MEAN CORPUSCULAR HGB CONC 34 g/dl (33.0-37.0); MEAN PLATELET VOLUME 10.4 fl (7.4-10.4); PLATELET COUNT 362 K/mm3 (130-400); RED BLOOD COUNT 3.38 M/mm3 (4.10-5.30); REDCELL DISTRIBUTION WIDTH-CV 14.1 % (11.5-14.5)
[2018-02-28 06:44] LABS: CALCIUM 8.2 mg/dL (8.4-10.2); CREATININE, serum 0.47 mg/dL (0.52-1.25); MAGNESIUM 1.8 mg/dL (1.6-2.3); POTASSIUM 3.9 mmol/L (3.4-5.0)
[2018-02-28 07:26] LABS: BAND 3 % (0-10); LYMPHOCYTE 19 % (20.0-51.0); MYELOCYTE 1 % (0-0); NEUTROPHILS 71 % (42.0-75.2); PLATELET ESTIMATE NORMAL (NORMAL); POLYCHROMASIA 1+
--- NOTE | 2018-02-28 08:00 | NUR ---
PATIENT IS DROWSY THIS MORNING AND RESTING IN BED. PATIENT IS A&O. GENERALIZED WEAKNESS NOTED. VSS. BOWEL SOUNDS ACTIVE ALL FOUR QUADRANTS. PATIENT TOLERATING FULL LIQUIDS WITH COMPLAINTS OF NAUSEA, BUT PATIENT DENIES ANY VOMITING. PATIENT GIVEN PRN DOSE OF IV ZOFRAN. MIDLINE ABDOMINAL INCISION DRESSED WITH ABD PAD AND TAPE AND IS CD&I. ABDOMINAL LAP SITE X1 COVERED BY ABD PAD DRESSING. UPPER LUNG LOBES CLEAR UPON AUSCULTATION. LUNG BASES DIMINISHED BILATERALLY. PATIENT DENIES A PRODUCTIVE COUGH OR SHORTNESS OF BREATH. INT TO LEFT FOREARM. POSITIVE PEDAL PULSES EQUAL BILATERALLY. 2+ PITTING EDEMA TO BLE. BREAKFAST TRAY ORDERED. CALL LIGHT WITHIN REACH. NO OTHER NEEDS AT THIS TIME.
--- NOTE | 2018-02-28 09:58 | NUR ---
Mallory from [facility] denies patient due to her being too high functioning. Patients daughter is unhappy about this decision and would like to talk to Mallory. SW informed Mallory who will come and meet with her.
--- NOTE | 2018-02-28 10:14 | NUR ---
First visit from the bank guard. No needs right now.
--- NOTE | 2018-02-28 12:30 | NUR ---
PATIENT'S DAUGHTER STATES THAT THE PATIENT FEELS THOUGH SHE COULD PASS OUT. PATIENT IS LAYING IN THE CHAIR. HOSPITALIST NOTIFIED. ORTHOSTATIC BLOOD PRESSURES AND RE-START IV FLUIDS ORDERED.
--- NOTE | 2018-02-28 15:34 | NUR ---
SW met with patient and daughter to discuss skilled placement. Patient would like to go to [facility] but would be ok with [facility] as her second choice. SW obtained choice form and made referral.
--- NOTE | 2018-02-28 20:00 | NUR ---
Patient in bed resting. Alert and oriented x 3. Shift assessment complete. IV fluids infusing to left forarm via pump. Gauze dressing to midline incision CDI. Denies pain at this time. States she has been able to pass gas but no BM yet. Patient up to restroom, with stand by assist and walker. Denies further needs at this time.
[2018-03-01 00:37] VITALS: BP 153/61; PULSE 61; TEMP 97.9
[2018-03-01 04:04] VITALS: BP 156/57; PULSE 65; TEMP 97.5
--- NOTE | 2018-03-01 06:11 | NUR ---
Patient has rested intermittently through the night. Has been up multiple times to restroom, stand by assist with walker. Steady gait. Has a small BM this AM. Has requested pain medications for headach through the night. Medications given per orders. Denies further needs at this time. Will report off to day shift.
[2018-03-01 06:49] LABS: HEMATOCRIT 28.4 % (37.0-47.0); HEMOGLOBIN 9.8 g/dl (12.5-16.0); MEAN CELL VOLUME 91 fl (80.0-100.0); MEAN CORPUSCULAR HEMOGLOBIN 32 pg (27.0-31.0); MEAN CORPUSCULAR HGB CONC 35 g/dl (33.0-37.0); MEAN PLATELET VOLUME 9.4 fl (7.4-10.4); PLATELET COUNT 346 K/mm3 (130-400); RED BLOOD COUNT 3.11 M/mm3 (4.10-5.30); REDCELL DISTRIBUTION WIDTH-CV 14.2 % (11.5-14.5)
[2018-03-01 06:52] LABS: CALCIUM 7.9 mg/dL (8.4-10.2); CREATININE, serum 0.52 mg/dL (0.52-1.25); POTASSIUM 3.5 mmol/L (3.4-5.0)
--- NOTE | 2018-03-01 08:14 | NUR ---
Patient has been up and ambulated in the halls with Mary Beth robledo clerk. Patient resting in bed now. She reports elevated pain now. Ultram for pain. Patient not wanting to take am medication until she has breakfast. Hai hilario.
[2018-03-01] MEDS ORDERED: TYLENOL 325MG325 MG PO (09:15)
[2018-03-01] MEDS ORDERED: NORCO 325 MG-51 TAB PO (09:15)
[2018-03-01] MEDS ORDERED: ULTRAM 50MG TAB50 MG PO (09:15)
[2018-03-01] MEDS ORDERED: COLACE 100100 MG/CAP PO (09:16)
[2018-03-01] MEDS ORDERED: K-TAB20 PO (09:16)
[2018-03-01] MEDS ORDERED: ZOFRAN ODT4 MG PO (09:17)
[2018-03-01] MEDS ORDERED: DULCOLAX S10 MG/SUPP RC (09:17)
[2018-03-01 09:19] VITALS: BP 137/55; PULSE 60; TEMP 97.8
[2018-03-01 09:27] LABS: LYMPHOCYTE 9 % (20.0-51.0); MYELOCYTE 1 % (0-0); NEUTROPHILS 87 % (42.0-75.2); PLATELET ESTIMATE NORMAL (NORMAL)
--- NOTE | 2018-03-01 10:20 | NUR ---
GENEVIEVE met with patient and daughter to discuss long term placement. They would like to go to [facility] due to them having a private room on their skilled wing. GENEVIEVE informed Stanford at [facility] and Fidelina at [facility] of their decision. GENEVIEVE presented IM and verbally discussed the contents. Patient and daughter agreeable and signed the form. Original on the chart and copy provided to patient. PU time scheduled for 12:30pm today, 03/01/18. Patient is dc today to [facility] for skilled care. GENEVIEVE informed [facility] of patients dc status for walker order and abebe CALL.
--- NOTE | 2018-03-01 10:29 | NUR ---
Patient given all am meds at this time. Patient finished her breakfast. Plans for discharge today. Patient daughter at bedside.
--- NOTE | 2018-03-01 10:34 | NUR ---
Patient up to the bathroom, loose liquid stool.
[2018-03-01 12:19] VITALS: BP 137/55; PULSE 60; TEMP 97.8
[2018-03-01 12:25] VITALS: BP 155/63; PULSE 68; TEMP 97.4
--- NOTE | 2018-03-01 12:50 | NUR ---
Patient dressed for discharge. Returned belongigns from the safe. Her daughter packed all her belongiings. Report called to nurse & via jaden garcia. All questiosn answered.
== END 2018-03-01 12:51 | DRG 330 ==
LOC: COL.ER 01:46 → SURG 06:06
PROVIDERS: Emergency Medicine; Internal Medicine; Physician Assistant; ADMIT Surgery
PROC: 0DN80ZZ Release Small Intestine, Open Approach (ICD-10-PCS; 2018-02-21)
PROC: 0DJD4ZZ Inspection of Lower Intestinal Tract, Percutaneous Endoscopic Approach (ICD-10-PCS; 2018-02-21)
PROC: 0DNH0ZZ Release Cecum, Open Approach (ICD-10-PCS; principal; 2018-02-21 14:30)
PROC: 0DQ80ZZ Repair Small Intestine, Open Approach (ICD-10-PCS; 2018-02-21 14:30)
DX: K56.52 Intestinal adhesions [bands] with complete obstruction (principal); N39.0 Urinary tract infection, site not specified; E87.1 Hypo-osmolality and hyponatremia; E46 Unspecified protein-calorie malnutrition; K91.71 Accidental puncture and laceration of a digestive system organ or structure during a digestive system procedure; I25.10 Atherosclerotic heart disease of native coronary artery without angina pectoris; I10 Essential (primary) hypertension; I48.0 Paroxysmal atrial fibrillation; Z79.01 Long term (current) use of anticoagulants; Z95.5 Presence of coronary angioplasty implant and graft; Z87.891 Personal history of nicotine dependence; E78.5 Hyperlipidemia, unspecified; I08.0 Rheumatic disorders of both mitral and aortic valves; E87.6 Hypokalemia; D64.9 Anemia, unspecified; B96.20 Unspecified Escherichia coli [E. coli] as the cause of diseases classified elsewhere; K56.7 Ileus, unspecified; Z68.20 Body mass index [BMI] 20.0-20.9, adult; E83.42 Hypomagnesemia; R13.11 Dysphagia, oral phase
CPT/HCPCS: 99223; 99231-AI; 99232-AI; 99233-AI; 99239; A4216; A4314; C9113; J0696; J1100; J1170; J1200; J1450; J1956; J2270; J2370; J2405; J2704; J3010; J3475; J3480; J7030; J7050; J7120; Q9967

== ENCOUNTER 2018-03-06 09:06 | Emergency (ER) | payer MEDICARE, OTHER ==
[~2018-03-06] VITALS: Ht 152.4 cm; Wt 46.8 kg
[~2018-03-06 09:06] MED LIST changes: +COLACE 100100 MG/CAP PO; +DULCOLAX S10 MG/SUPP RC; +FERROUSAL325 MG PO; +K-TAB20 PO; +ULTRAM 50MG TAB50 MG PO; +ZOFRAN ODT4 MG PO
[2018-03-06 09:12] VITALS: TEMP 97.5
[2018-03-06] MEDS ORDERED: VITAMIN D31000 I1 PO (09:35)
[2018-03-06] MEDS ORDERED: OSTEO-BI-FLEX 21 TAB PO (09:36)
[2018-03-06] MEDS ORDERED: FIORICET 325 MG1 TA1 PO (09:38)
[2018-03-06 10:03] LABS: BASO % 0.6 % (0.0-2.0); EOS # 0.1 (0.0-0.7); EOS % 1.3 % (0-4.0); GRAN # 4.6 (1.4-6.5); GRAN % 64.2 % (42.2-75.2); LYMPH # 1.7 (1.2-3.4); LYMPH % 23.8 % (20.0-51.0); MEAN CELL VOLUME 94 fl (80.0-100.0); MEAN CORPUSCULAR HGB CONC 34 g/dl (33.0-37.0); MEAN PLATELET VOLUME 8.9 fl (7.4-10.4); MONO # 0.7 (0.1-0.6); MONO % 9.1 % (1.7-9.3); PLATELET COUNT 494 K/mm3 (130-400); REDCELL DISTRIBUTION WIDTH-CV 14.7 % (11.5-14.5)
[2018-03-06 10:05] LABS: HEMATOCRIT 28.1 % (37.0-47.0); HEMOGLOBIN 9.5 g/dl (12.5-16.0); MEAN CORPUSCULAR HEMOGLOBIN 32 pg (27.0-31.0)
[2018-03-06 10:13] LABS: ALBUMIN 3.2 gm/dL (3.5-5.0); BILIRUBIN,TOTAL 0.2 mg/dL (0.0-1.0); CALCIUM 8.9 mg/dL (8.4-10.2); CREATININE, serum 0.54 mg/dL (0.52-1.25); MAGNESIUM 1.3 mg/dL (1.6-2.3); PHOSPHOROUS 2.8 mg/dL (2.5-4.5); POTASSIUM 3.9 mmol/L (3.4-5.0); TOTAL PROTEIN 5.9 gm/dL (6.4-8.2)
[2018-03-06 10:18] LABS: INR 1.2 (0.8-3.0); PROTHROMBIN TIME 13.9 SECONDS (9.7-12.8)
[2018-03-06 11:22] LABS: COLLECTION METHOD CLEAN CATCH
[2018-03-06 11:37] LABS: MUCOUS Present /lpf; PH 7 (5-8); SQUAMOUS EPITHELIAL 0-2 /hpf; URINE APPEARANCE Hazy; URINE BACTERIA Rare /hpf; URINE BILIRUBIN Negative (NEGATIVE); URINE BLOOD Negative (NEGATIVE); URINE COLOR Yellow; URINE GLUCOSE Negative (NEGATIVE); URINE KETONE Negative (NEGATIVE); URINE LEUKOCYTE ESTERASE Negative (NEGATIVE); URINE NITRATE Negative (NEGATIVE); URINE PROTEIN(semi-quant) Negative (NEGATIVE); URINE RBC 0-2 /hpf; URINE UROBILINOGEN Negative (NEGATIVE)
[2018-03-06 13:00] VITALS: BP 164/66; PULSE 70
== END 2018-03-06 13:00 | disposition home or self-care (01) ==
LOC: COL.ER 09:06
PROVIDERS: Emergency Medicine
DX: R51 Headache (principal); E87.1 Hypo-osmolality and hyponatremia; I48.91 Unspecified atrial fibrillation; I10 Essential (primary) hypertension; Z90.49 Acquired absence of other specified parts of digestive tract; Z90.89 Acquired absence of other organs; Z79.01 Long term (current) use of anticoagulants
CPT/HCPCS: J2405; J3010; J3475

== ENCOUNTER → 2018-03-09 | Outpatient (REF) ==
[~2018-03-09] MED LIST changes: +FIORICET 325 MG1 TA1 PO; +VITAMIN D31000 I1 PO
[2018-03-09 17:41] LABS: CALCIUM 9.5 mg/dL (8.4-10.2); CREATININE, serum 0.64 mg/dL (0.52-1.25); POTASSIUM 4.6 mmol/L (3.4-5.0)
== END ==
LOC: ZLAB.STJ 17:18
PROVIDERS: Internal Medicine
DX: R79.89 Other specified abnormal findings of blood chemistry (principal)

== ENCOUNTER → 2018-04-14 | Outpatient (REF) | LOC: ZCOL.LAB 13:59 | DX: Z01.89 Encounter for other specified special examinations (principal) ==

== ENCOUNTER → 2018-04-18 | Outpatient (CLI) | payer MEDICARE, OTHER | LOC: ZCOL.LAB 08:50 | DX: Z48.812 Encounter for surgical aftercare following surgery on the circulatory system (principal) ==

== ENCOUNTER 2019-01-24 07:12 | Day surgery (SDC) | payer MEDICARE, OTHER ==
[~2019-01-24] VITALS: Ht 152.5 cm; Wt 50.0 kg
[2019-01-24] VITALS (12 sets, daily range): BP systolic 116–155; BP diastolic 51–123; PULSE 60–85; TEMP 97.5
[2019-01-24 07:55] LABS: HEMOGLOBIN 12.2 g/dl (12.5-16.0); MEAN CELL VOLUME 96 fl (80.0-100.0); MEAN CORPUSCULAR HEMOGLOBIN 32 pg (27.0-31.0); MEAN CORPUSCULAR HGB CONC 33 g/dl (33.0-37.0); MEAN PLATELET VOLUME 10.5 fl (7.4-10.4); PLATELET COUNT 220 K/mm3 (130-400); RED BLOOD COUNT 3.85 M/mm3 (4.10-5.30); REDCELL DISTRIBUTION WIDTH-CV 12.8 % (11.5-14.5)
[2019-01-24 07:56] LABS: HEMATOCRIT 36.8 % (37.0-47.0)
[2019-01-24 08:02] LABS: INR 0.9 (0.8-3.0); PROTHROMBIN TIME 10.8 SECONDS (9.7-12.8)
[2019-01-24 08:08] LABS: CALCIUM 9.8 mg/dL (8.4-10.2); CREATININE, serum 0.76 (0.52-1.25); POTASSIUM 4.1 mmol/L (3.4-5.0)
[2019-01-24] MEDS ORDERED: CALCIUM/MAGNESI1 TAB PO (08:18)
[2019-01-24] MEDS ORDERED: NORCO 325 MG-51 TAB PO (08:26)
[2019-01-24] MEDS ORDERED: NITRO-DUR0.2 MG/PAT TD (08:28)
[2019-01-24] MEDS ORDERED: OSTEO-BI-FLEX 21 TAB PO (08:29)
[2019-01-24] MEDS ORDERED: BETAPACE 80MG80 MG PO (08:30)
--- NOTE | 2019-01-24 08:56 | NUR ---
SEE MEREGE AND ANESTHESIA RECORD FOR ALL MEDICATION ADMINISTRATION TIMES AND INTRA AND POST SEDATION ASSESSMENT.
--- NOTE | 2019-01-24 10:10 | NUR ---
Pt returned to EU 12 per bed s/p [place]/heart cath. Pt resting well, friend Linn at bedside.
--- NOTE | 2019-01-24 10:14 | NUR ---
PATIENT TRASPORTED TO EXPRESS UNIT. BEDSIDE HAND OFF TO JIGNA CESAR. HEMOSTASIS MAINTAINED TO ACCESS SITE. SKIN, SOFT, DRESSING C/D/I. DISTAL PULSES 1+.
--- NOTE | 2019-01-24 14:10 | NUR ---
Pt has ambulated, voided and dileep PO intake s n/v.
--- NOTE | 2019-01-24 14:30 | NUR ---
PIV removed with catheter intact.
--- NOTE | 2019-01-24 14:35 | NUR ---
Pt discharged per w/c by nurse with friend Linn.
== END 2019-01-24 15:52 | disposition home or self-care (01) ==
LOC: COL.CAR 07:12
PROVIDERS: Internal Medicine Cardiovascular Disease
DX: I25.10 Atherosclerotic heart disease of native coronary artery without angina pectoris (principal); R06.02 Shortness of breath; I08.3 Combined rheumatic disorders of mitral, aortic and tricuspid valves; Z95.810 Presence of automatic (implantable) cardiac defibrillator; K21.9 Gastro-esophageal reflux disease without esophagitis; E78.5 Hyperlipidemia, unspecified; Z95.5 Presence of coronary angioplasty implant and graft; Z90.49 Acquired absence of other specified parts of digestive tract; Z88.1 Allergy status to other antibiotic agents; Z88.0 Allergy status to penicillin; Z88.5 Allergy status to narcotic agent; Z82.49 Family history of ischemic heart disease and other diseases of the circulatory system; I47.2 Ventricular tachycardia; Z79.01 Long term (current) use of anticoagulants; Z79.899 Other long term (current) drug therapy; Z79.82 Long term (current) use of aspirin; M81.0 Age-related osteoporosis without current pathological fracture; E55.9 Vitamin D deficiency, unspecified
CPT/HCPCS: J1200; J1644; J2704; J3010

== ENCOUNTER 2019-05-07 15:35 | Outpatient (RCR) | payer MEDICARE, OTHER ==
[~2019-05-07 15:35] MED LIST changes: +CALCIUM/MAGNESI1 TAB PO; +NITRO-DUR0.2 MG/PAT TD
== END 2019-07-10 | disposition home or self-care (01) ==
LOC: COL.CR
DX: Z48.812 Encounter for surgical aftercare following surgery on the circulatory system (principal); Z95.5 Presence of coronary angioplasty implant and graft

== ENCOUNTER → 2019-10-24 | Outpatient (CLI) | payer MEDICARE, OTHER | LOC: ZLAB.ENT 16:19 | DX: J32.3 Chronic sphenoidal sinusitis (principal) ==

== ENCOUNTER 2022-07-16 11:46 | Inpatient (IN) | payer MEDICARE, OTHER ==
[~2022-07-16] VITALS: Ht 152.4 cm; Wt 50.5 kg
[2022-07-16 14:06] LABS: BASO # 0.1 K/mm3 (0.0-0.2); BASO % 0.5 % (0.0-2.0); EOS % 0.3 % (0.0-4.0); GRAN # 7.6 K/mm3 (1.4-6.5); GRAN % 72.7 % (42.2-75.2); LYMPH # 1.7 K/mm3 (1.2-3.4); LYMPH % 16.5 % (20.0-51.0); MEAN CELL VOLUME 95 fl (80.0-100.0); MEAN CORPUSCULAR HEMOGLOBIN 32 pg (27-31); MEAN CORPUSCULAR HGB CONC 34 g/dl (33.0-37.0); MEAN PLATELET VOLUME 10.2 fl (7.4-10.4); MONO % 9.3 % (1.7-9.3); PLATELET COUNT 196 K/mm3 (130-400); RED BLOOD COUNT 3.43 M/mm3 (4.10-5.30); REDCELL DISTRIBUTION WIDTH-CV 12.4 % (11.5-14.5)
[2022-07-16 14:11] LABS: INR 1.9 (0.8-3.0); PROTHROMBIN TIME 21.9 SECONDS (9.7-12.8)
[2022-07-16 14:12] LABS: HEMATOCRIT 32.4 % (37.0-47.0)
[2022-07-16 14:27] LABS: ALBUMIN 3.4 gm/dL (3.4-4.8); BILIRUBIN,TOTAL 0.9 mg/dL (0.2-1.2); CALCIUM 9.5 mg/dL (8.4-10.2); CREATININE, serum 0.66 mg/dL (0.57-1.11); POTASSIUM 3.4 mmol/L (3.5-4.5); TOTAL PROTEIN 6.5 gm/dL (6.2-8.1)
[2022-07-16 17:00] VITALS: BP_SYST 95
[2022-07-16] MEDS ORDERED: BREZTRI AEROS10.7 GM IH (17:38)
[2022-07-16] MEDS ORDERED: BACTRIM 400 MG-1 TAB PO (17:41)
[2022-07-16] MEDS ORDERED: VITAMIN D31000 I1 PO (17:42)
[2022-07-16] MEDS ORDERED: LASIX 20MG TABL20 MG PO (17:44)
[2022-07-16] MEDS ORDERED: OSTEO-BI-FLEX 21 TAB PO (17:45)
[2022-07-16 17:52] VITALS: BP 95/75; PULSE 68; TEMP 98.3
[2022-07-16] MEDS ORDERED: SLOW-MAG71.5 MG PO (18:01)
--- NOTE | 2022-07-16 20:30 | NUR ---
PT RESTING IN BED. A&O. HAVING MILD PAIN LLE, HAD PAIN MED 1600. PT CONCERED ELIQUIS IS ON HOLD R/T HX AFIB. PT INFORED DR LAUGHLIN WILL COME IN TO CONSULT ON HIP FX. IF NO SURGERY POSSIBLY RESTART ELIQUIS THEN. TELE IN PLACE. PACED. CALL LIGHT IN REACH. BED ALARM SET.
[2022-07-16 21:00] VITALS: BP_SYST 115
[2022-07-16 21:05] VITALS: BP 115/53; PULSE 66; TEMP 98.4
[2022-07-16 23:51] VITALS: BP 142/77; PULSE 60; TEMP 98.3
[2022-07-17] VITALS (11 sets, daily range): BP systolic 119–150; BP diastolic 35–80; PULSE 59–77; TEMP 98.1–98.4
[2022-07-17 07:08] LABS: BASO % 0.6 % (0.0-2.0); EOS # 0.2 K/mm3 (0.0-0.7); EOS % 2.9 % (0.0-4.0); GRAN # 4.1 K/mm3 (1.4-6.5); GRAN % 56.7 % (42.2-75.2); LYMPH % 28.2 % (20.0-51.0); MEAN CELL VOLUME 96 fl (80.0-100.0); MEAN CORPUSCULAR HGB CONC 34 g/dl (33.0-37.0); MEAN PLATELET VOLUME 11.3 fl (7.4-10.4); MONO # 0.8 K/mm3 (0.1-0.6); PLATELET COUNT 173 K/mm3 (130-400); RED BLOOD COUNT 2.96 M/mm3 (4.10-5.30); REDCELL DISTRIBUTION WIDTH-CV 12.6 % (11.5-14.5)
[2022-07-17 07:15] LABS: HEMATOCRIT 28.3 % (37.0-47.0); HEMOGLOBIN 9.6 g/dl (12.5-16.0); MEAN CORPUSCULAR HEMOGLOBIN 32 pg (27-31)
[2022-07-17 07:26] LABS: CALCIUM 8.4 mg/dL (8.4-10.2); CREATININE, serum 0.63 mg/dL (0.57-1.11); POTASSIUM 3.4 mmol/L (3.5-4.5)
--- NOTE | 2022-07-17 08:16 | NUR ---
Patient resting in bed. She was repositioned in bed. Linens strightened. Patient very alert. She is very knowledgable about her medications and concerned about her medications being held, informed her we can discuss her concerns with the doctor, she is most concerned about her eliquis being held, she does not want to have surgery. Breakfast ordered, denies nausea. Immobilizer to LLE, swelling noted. Cms intact. Patient very hesitant to have LLE iced and elevated. Int. Will monitor
--- NOTE | 2022-07-17 10:10 | NUR ---
Patient unhappy about her breakfast tray, cereal was provided. Ortho rounded & plan of care reveiwed. Patient pleased to hear no plans for surgery. Patient was 2 assist to bedside commode, remaining non weight bearing to LLE. She voided, no able to have BM. Will continue to monitor.
--- NOTE | 2022-07-17 10:50 | NUR ---
Health Evaluator rounds: Health Evaluator visit attempted; Patient was eating the cereal from her breakfast. Health Evaluator visit declined.
--- NOTE | 2022-07-17 17:59 | NUR ---
Patient resting in bed. Up to bedside commode,2 assist. She was wanting to use bedpan, but reviewed with her importance of activity in preventing pnemonia. She was able to have a small hard stool. We discussed constipation. She reports diverticulitis and chronic loose stool, not wanting any stool softners or laxatives at this time. Patient very frustrated with the menu, she is unable to have alot on the menu because of her heart healthy diet and she also follows a stict low fiber diet. Dinner was ordered. [place] for pain management. DANIELE immobilizer remains on. Will monitor
--- NOTE | 2022-07-17 21:00 | NUR ---
PT WANTING TO USE BEDPAN AND PUREWICK. DISCUSSED IMPORTANCE OF ACTIVITY. REVIEWED NOTE REGARDING MOBILIZING. PT ARGUMENTATIVE. HS MEDS GIVEN PT TAKES AT HOME IN [place]. HAS LLE IMMOBILIZER ON, GOOD PULSES NOTED. REFUSED SCDS AND THELMA HOSE. HAS INT TO RFA, FLUSHES WELL. KPAD FOR SHOULDER DISCOMFORT.
--- NOTE | 2022-07-17 23:15 | NUR ---
MEDICATED WITH REMAINING HS MED AND NORCO FOR LT LEG PAIN. PT ASSISTED TO BSC, DOES WELL WITH ENCOURAGEMENT. VOIDS AND BACK TO BED.
[2022-07-18] VITALS (11 sets, daily range): BP systolic 115–175; BP diastolic 40–71; PULSE 59–64; TEMP 97.6–98.2
--- NOTE | 2022-07-18 03:35 | NUR ---
UP TO BSC TO VOID, TRANSFERRING BETTER NWB LLE.
--- NOTE | 2022-07-18 05:06 | NUR ---
MEDICATED WITH NORCO FOR LLE PAIN AND HEADACHE.
[2022-07-18 06:52] LABS: BASO # 0.1 K/mm3 (0.0-0.2); BASO % 0.7 % (0.0-2.0); EOS # 0.2 K/mm3 (0.0-0.7); GRAN # 4.3 K/mm3 (1.4-6.5); GRAN % 58.6 % (42.2-75.2); LYMPH # 1.9 K/mm3 (1.2-3.4); LYMPH % 26.4 % (20.0-51.0); MEAN CELL VOLUME 95 fl (80.0-100.0); MEAN CORPUSCULAR HGB CONC 34 g/dl (33.0-37.0); MEAN PLATELET VOLUME 11.2 fl (7.4-10.4); MONO # 0.8 K/mm3 (0.1-0.6); MONO % 10.9 % (1.7-9.3); PLATELET COUNT 174 K/mm3 (130-400); RED BLOOD COUNT 2.95 M/mm3 (4.10-5.30); REDCELL DISTRIBUTION WIDTH-CV 12.5 % (11.5-14.5)
[2022-07-18 07:05] LABS: HEMATOCRIT 27.9 % (37.0-47.0); HEMOGLOBIN 9.6 g/dl (12.5-16.0); MEAN CORPUSCULAR HEMOGLOBIN 33 pg (27-31)
[2022-07-18 07:11] LABS: CALCIUM 8.5 mg/dL (8.4-10.2); CREATININE, serum 0.63 mg/dL (0.57-1.11); MAGNESIUM 1.7 mg/dL (1.6-2.6); POTASSIUM 3.5 mmol/L (3.5-4.5)
--- NOTE | 2022-07-18 11:28 | NUR ---
Called Vandana bullet slugs inspector, to consult with pt r/t diet likes/dislikes and available food options. Vandana reviewed medical hx, changed to general diet, at bedside talking to pt.
--- NOTE | 2022-07-18 14:00 | NUR ---
Pt receives lunch meal. c/o pulido not being put on hamburger and that she can't get the bun off because it's stuck to the burger. States that she will just eat her fries. Also says that the hamburger aaron is not like what she makes at home, which she refers to as a [place] hamburger and says that it is much thinner. Assist pt up to BSC. Needs lots of encouragement to move herself to edge of bed even while this RN supporting weight of injured leg. Pt states that she was completely independant prior to fall and fx.
--- NOTE | 2022-07-18 19:22 | NUR ---
Pt assessment completed. A&Ox4. Pt requesting her pain medication at this time. RFA INT is CDI. Has no other requests at this time. Immobilizer on LLE is in place. Pt ahs belongings and call light within reach.
[2022-07-19] VITALS (12 sets, daily range): BP systolic 103–154; BP diastolic 42–77; PULSE 60–124; TEMP 97.4–98.1
--- NOTE | 2022-07-19 05:54 | NUR ---
Pt ambulated to the bathroom a few times during the night. Refused sucralfate and colace at the begining of the shift, and requested PO pain med for pain on LLE at 7/10 without activity, and 10/10 when moving.
--- NOTE | 2022-07-19 09:30 | NUR ---
radiation protection technician called & informed me of elevated heart rate, possible afib with pacer. made aware, no new orders at this time. Will monitor
--- NOTE | 2022-07-19 09:38 | NUR ---
Patient resting in bed. Again disappointed with her food. Another breakfast tray ordered. Erick for pain per request. Pain elevated after activity. 2 assist to commode with walker. Reminding patient to remain NWB to LLE. Int. Tele on. CLosely monitoring
--- NOTE | 2022-07-19 10:31 | NUR ---
Patient remains tachy. Patient took her am sotolol & eliquis without problems. aware heart rate remains high. EKG ordered
--- NOTE | 2022-07-19 11:37 | NUR ---
Patient resting in bed. Anxious about heart rate, rounded and plan of care reviewed. Amiodrone drip infusing per orders. This nurse remains at bedside for bolous . We discussed monitoring IV site closely & reporting any discomfort. Vss on room air. Tele on and [employer] made aware of starting the drip.
[2022-07-19 11:38] LABS: CALCIUM 8.5 mg/dL (8.4-10.2); CREATININE, serum 0.7 mg/dL (0.57-1.11); MAGNESIUM 1.3 mg/dL (1.6-2.6); POTASSIUM 3.4 mmol/L (3.5-4.5)
--- NOTE | 2022-07-19 11:46 | NUR ---
called and made aware of lab results. Patient tolerated amio bolous drip started
--- NOTE | 2022-07-19 13:59 | NUR ---
SW met with pt to complete intake. Pt reports they live at home alone in a apartment. The pt reports she is from [place] and is . Pt has two dtrs and DPOA-HC is Radha @ [phone]. Pt reports she independent with all ADLS and has cane. PCP is Dr. Gong and gets medications from [place]. No other needs at this time. Sw await for further recommendations and follow up as needed. DC: SNF or [facility]: SW faxed referral to [facility].
--- NOTE | 2022-07-19 14:46 | NUR ---
Patient has tolerated Amio drip, Heart rate now controlled. New Ivf started to Lfa for Mg drip. SHe tolerated lunch. Will monitor.
--- NOTE | 2022-07-19 17:23 | NUR ---
Patient up to bedside commode. Voided. Amio switched to LFA IV, RFA leaking. dinner ordered
--- NOTE | 2022-07-19 19:03 | NUR ---
Bedside report to Leah. Plan of care reviewed. Amio dose changed per orders.
[2022-07-20 00:11] VITALS: BP 147/51; PULSE 60; TEMP 98.2
[2022-07-20 03:58] VITALS: BP 154/61; PULSE 58; TEMP 97.8
--- NOTE | 2022-07-20 06:07 | NUR ---
PATIENT IS ON AMIO DRIP INFUSING WELL.PATIENT HAS MAINTAINED HER HR ON THE 60S.PATIENT IS ASKIMG FOR PRN MEDS EVERY 4HRS.PATIENT TAKES PILLS WHOLE IN [place] PUDDING.PATIENT IS A PIVOT TRANSFER TO THE BEDSIDE COMMODE.SAFETY MEASURES IN PLACE.NO OTHER NEEDS AT THIS TIME.
[2022-07-20 06:24] LABS: BASO # 0.1 K/mm3 (0.0-0.2); BASO % 0.7 % (0.0-2.0); EOS # 0.2 K/mm3 (0.0-0.7); EOS % 2.4 % (0.0-4.0); GRAN # 4.3 K/mm3 (1.4-6.5); GRAN % 60.9 % (42.2-75.2); HEMOGLOBIN 10.4 g/dl (12.5-16.0); LYMPH # 1.8 K/mm3 (1.2-3.4); LYMPH % 26.1 % (20.0-51.0); MEAN CELL VOLUME 95 fl (80.0-100.0); MEAN CORPUSCULAR HEMOGLOBIN 32 pg (27-31); MEAN CORPUSCULAR HGB CONC 34 g/dl (33.0-37.0); MEAN PLATELET VOLUME 10.5 fl (7.4-10.4); MONO # 0.7 K/mm3 (0.1-0.6); MONO % 9.5 % (1.7-9.3); PLATELET COUNT 215 K/mm3 (130-400); RED BLOOD COUNT 3.21 M/mm3 (4.10-5.30); REDCELL DISTRIBUTION WIDTH-CV 12.4 % (11.5-14.5)
[2022-07-20 06:26] LABS: HEMATOCRIT 30.6 % (37.0-47.0)
[2022-07-20 06:40] LABS: CALCIUM 8.7 mg/dL (8.4-10.2); CREATININE, serum 0.69 mg/dL (0.57-1.11); MAGNESIUM 1.7 mg/dL (1.6-2.6); POTASSIUM 4.3 mmol/L (3.5-4.5)
[2022-07-20 08:00] VITALS: BP 152/55; PULSE 60; TEMP 98.6
[2022-07-20 08:49] VITALS: BP_SYST 152
--- NOTE | 2022-07-20 09:42 | NUR ---
PATIENT ALERT AND ORIENTED X4. VSS. PATIENT HERE FOR TIBIAL PLATEAU FRACTURE. PATIENT REPORTS PAIN 08/30. IV TO LEFT FOREARM WITH AMIO GTT RUNNING AT 17.2ML/HOUR. PATIENT UP EATING BREAKFAST, GOING TO WORK WITH THERAPY THIS MORNING. CALL LIGHT IN REACH.
--- NOTE | 2022-07-20 10:18 | NUR ---
Back [facility] followed-up with referrals sent to SNF for placment. [facility] accepts Patient for admission. SW collaborated with treatment team to assess Patient discharge status. Treatment team assessed that Patient needs to be seen by cardiology but is otherwise ready for discahrge. SW met with Patient to update on [facility] acceptence. Patient reports to want to discahrge to [facility]. SW notified [facility] of Patient agreement for acceptence.
[2022-07-20] MEDS ORDERED: ELIQUIS 2.5 PO (10:40)
[2022-07-20] MEDS ORDERED: BETAPACE 120MG120 MG PO (10:41)
[2022-07-20] MEDS ORDERED: MIRALAX PA17 GM/Dose PO (10:42)
[2022-07-20] MEDS ORDERED: COLACE 100100 MG/CAP PO (10:42)
[2022-07-20] MEDS ORDERED: K-DUR20 MEQ PO (10:43)
[2022-07-20] MEDS ORDERED: TYLENOL 500MG500 MG PO (10:45)
[2022-07-20] MEDS ORDERED: NORCO 325 MG-51 TAB PO (10:45)
--- NOTE | 2022-07-20 12:10 | NUR ---
Poultry Pinner met with Patient at bedside to conduct Medicare IM Brief. Patient acknowledged and signed form. Original placed in chart, copy provided to Patient.
--- NOTE | 2022-07-20 13:13 | NUR ---
DISCHARGE REPORT CALLED TO KESHIA AT [facility]. IV DC'D. PATIENT AND BELONGINGS ESCORTED OUT WITH TRANSPORTER.
== END 2022-07-20 13:05 | DRG 563 ==
LOC: COL.ER 11:46 → SURG 13:53
PROVIDERS: Internal Medicine; Physician Assistant; ADMIT Student in an Organized Health Care Education/Training Program
PROC: 2W3MX1Z Immobilization of Left Lower Extremity using Splint (ICD-10-PCS; principal; 2022-07-16)
DX: S82.142A Displaced bicondylar fracture of left tibia, initial encounter for closed fracture (principal); I48.0 Paroxysmal atrial fibrillation; W18.39XA Other fall on same level, initial encounter; I25.10 Atherosclerotic heart disease of native coronary artery without angina pectoris; E78.5 Hyperlipidemia, unspecified; I44.7 Left bundle-branch block, unspecified; K21.9 Gastro-esophageal reflux disease without esophagitis; I10 Essential (primary) hypertension; Z66 Do not resuscitate; I34.0 Nonrheumatic mitral (valve) insufficiency; Y93.89 Activity, other specified; Y92.098 Other place in other non-institutional residence as the place of occurrence of the external cause; Z79.01 Long term (current) use of anticoagulants; Z87.19 Personal history of other diseases of the digestive system; Z90.710 Acquired absence of both cervix and uterus; Z95.5 Presence of coronary angioplasty implant and graft; Z90.49 Acquired absence of other specified parts of digestive tract; Z95.0 Presence of cardiac pacemaker; Z88.5 Allergy status to narcotic agent; Z88.0 Allergy status to penicillin; Z23 Encounter for immunization; Z85.828 Personal history of other malignant neoplasm of skin; Z88.8 Allergy status to other drugs, medicaments and biological substances; Z87.891 Personal history of nicotine dependence; Z79.82 Long term (current) use of aspirin; Z79.899 Other long term (current) drug therapy
CPT/HCPCS: J0282; J2270; J3475; J7030; J7060; L1846